=== PATIENT | male | born 1985 | race Two or more races ===

== ENCOUNTER 2019-01-17 21:29 | Emergency (ER) | payer OTHER, SELFPAY ==
[~2019-01-17] VITALS: Ht 170.2 cm; Wt 66.0 kg
[2019-01-17 23:40] LABS: BASOPHILS % 0.4 % (0.0-2.0); EOSINOPHILS % 2.6 % (0.0-5.0); HEMATOCRIT. 45.7 % (42.0-52.0); HEMOGLOBIN. 15.5 g/dL (14.0-18.0); LYMPHOCYTES % 46.3 % (20.0-50.0); MEAN CORPUSCULAR HEMOGLOBIN 30.3 pg (28.0-32.0); MEAN CORPUSCULAR VOLUME 89.5 fL (80.0-94.0); MEAN PLATELET VOLUME 7.9 fl (7.4-10.4); MONOCYTES % 6.5 % (2.0-8.0); NEUTROPHILS % 44.2 % (40.0-76.0); PLATELET 242 x1000/uL (130-400); RED BLOOD CELL COUNT 5.11 mill/uL (4.7-6.1); RED CELL DISTRIBUTION WIDTH 14.2 % (11.6-14.6)
[2019-01-17 23:45] LABS: CHLORIDE 111 mEq/L (98-107)
[2019-01-17 23:49] LABS: ETHANOL BLOOD 285 mg/dL
[2019-01-18 09:24] VITALS: BP 128/81
== END 2019-01-18 09:28 | disposition home or self-care (01) ==
LOC: ER 21:29
DX: T51.0X1A Toxic effect of ethanol, accidental (unintentional), initial encounter (principal); R41.82 Altered mental status, unspecified; Y90.8 Blood alcohol level of 240 mg/100 ml or more; Z59.0 Homelessness; Y92.488 Other paved roadways as the place of occurrence of the external cause
CPT/HCPCS: 36415; 80048; 80320; 99283; G0480